=== PATIENT | male | born 1975 | race Caucasian/White ===

== ENCOUNTER 2016-11-10 17:53 | Emergency (ER) | payer OTHER ==
[2016-11-10 17:53] VITALS: BMI 28.2
[2016-11-10] MEDS ORDERED: Aspirin 325 mg EC Tablets PO STA (18:10)
[2016-11-10 18:25] LABS: BASO % 0.3 % (0.0-2.0); EOS # 0.1 K/uL (0.0-0.7); EOS % 1.8 % (0.0-4.0); HEMATOCRIT 41.6 % (35.0-51.0); LYMPH # 2.5 K/uL (1.0-4.3); MEAN CELL VOLUME 77.2 fL (80.0-94.0); MEAN CORPUSCULAR HEMOGLOBIN 25.3 pg (27.0-31.0); MEAN CORPUSCULAR HGB CONC 32.7 g/dL (33.0-37.0); MEAN PLATELET VOLUME 7.8 fL (7.2-11.7); MONO # 0.7 K/uL (0.0-0.8); MONO % 9.2 % (0.0-10.0); NRBC % 0.1 % (0.0-2.0); RED CELL DISTRIBUTION WIDTH 14.9 % (11.5-14.5); WHITE BLOOD COUNT 7.5 K/uL (4.8-10.8)
[2016-11-10 18:34] LABS: CHLORIDE 101 mmol/L (98-107); INR 1.1; PARTIAL THROMBOPLASTIN TIME 31 SECONDS (21-34); SODIUM 140 mmol/L (132-148)
[2016-11-10 18:35] LABS: POTASSIUM 3.8 mmol/L (3.6-5.2)
[2016-11-10 18:37] LABS: ALB/GLOB RATIO 1.1 (1.0-2.1); ALKALINE PHOSPHATASE 65 U/L (38-126); ALT/SGPT 30 U/L (21-72); AST/SGOT 27 U/L (17-59); BILIRUBIN,TOTAL 0.6 mg/dL (0.2-1.3); BLOOD UREA NITROGEN 9 mg/dL (9-20); CARBON DIOXIDE 23 mmol/L (22-30); GFR AFRICAN-AMERICAN > 60; GLUCOSE,RANDOM 98 mg/dL (75-110); TOTAL PROTEIN 7.3 g/dL (6.3-8.3)
[2016-11-10 18:38] LABS: CALCIUM 8.5 mg/dl (8.6-10.4)
--- NOTE | 2016-11-10 19:34 | C.PDOC ---
History Of Present Illness Pt c/o left sided chest pain this morning that lasted a few minutes. Time Seen by Provider: 11/10/16 18:04 Chief Complaint (Nursing): Chest Pain History Per: Patient Onset/Duration Of Symptoms: Hrs (this morning) Current Symptoms Are (Timing): Gone (lasted a few minutes) Severity: Moderate Quality: Sharp Associated Symptoms: denies: Nausea, Dyspnea, Diaphoresis, Syncope Modifying Factors: None Additional History Per: Prior Records Past Medical History Reviewed: Historical Data, Nursing Documentation, Vital Signs Vital Signs: Last Vital Signs Temp 98.6 F 11/10/16 18:00 Pulse 85 11/10/16 18:00 Resp 18 11/10/16 18:00 BP 119/80 11/10/16 18:00 Pulse Ox 97 11/10/16 18:00 - Medical History PMH: Anxiety Surgical History: No Surg Hx - [facility] Procedures CLOSURE SKIN & SUBCUTANEOUS NEC (01/22/05) Family History: States: Diabetes, Hypertension Denies: [place] (at early age) - Social History Hx Tobacco Use: No Hx Alcohol Use: Yes Hx Substance Use: No - Immunization History Hx Tetanus Toxoid Vaccination: No Hx Influenza Vaccination: No Hx Pneumococcal Vaccination: No Review Of Systems Except As Marked, All Systems Reviewed And Found Negative. Constitutional: Negative for: Fever, Weakness Respiratory: Negative for: Shortness of Breath, Hemoptysis Gastrointestinal: Negative for: Nausea, Vomiting, Abdominal Pain Musculoskeletal: Negative for: Neck Pain, Leg Pain Skin: Negative for: Rash Neurological: Negative for: Weakness, Numbness, Seizures, Altered Mental Status Physical Exam - Physical Exam Appears: Non-toxic, No Acute Distress Skin: Normal Color, Warm, Dry, No Rash Head: Atraumatic, Normacephalic Eye(s): bilateral: PERRL, EOMI Neck: Normal ROM, Supple Cardiovascular: Rhythm Regular Respiratory: Normal Breath Sounds, No Accessory Muscle Use Gastrointestinal/Abdominal: Soft, No Tenderness Back: No CVA Tenderness Extremity: Normal ROM, No Pedal Edema, No Calf Tenderness Neurological/Psych: Oriented x3, Normal Motor, Normal Sensation ED Course And Treatment - Laboratory Results Result Diagrams: 11/10/16 18:20 11/10/16 18:20 Lab Interpretation: No Acute Changes ECG: Interpreted By Me, Viewed By Me ECG Rhythm: Sinus Rhythm ECG Interpretation: No Acute Changes Rate From EC O2 Sat by Pulse Oximetry: 97 Pulse Ox Interpretation: Normal - Radiology CXR: Interpreted by Me, Viewed By Me CXR Interpretation: Yes: No Acute Disease, Heart Size (wnl), Mediastinum (wnl) Reassessment Condition: Improved Disposition Counseled Patient/Family Regarding: Studies Performed, Diagnosis, Need For Followup, Rx Given - Disposition Referrals: [facility] [Outside] Disposition: HOME/ ROUTINE Disposition Time: 19:34 Condition: STABLE Additional Instructions: Follow up in the clinic within 1 week for further evaluation and treatment. Return to the ER if you develop worsening of symptoms or if you have any other concerns. Prescriptions: Aspirin [Ecotrin] 81 mg PO DAILY #30 tabec Instructions: Chest Pain (ED) - Clinical Impression Clinical Impression: Chest pain
[2016-11-10 19:55] VITALS: BP 115/79; PULSE 76; RESP 20; TEMP 98.3; O2SAT 96
--- NOTE | 2016-11-11 09:27 | RAD ---
PROCEDURE: CHEST RADIOGRAPH, 1 VIEW HISTORY: Chest pain COMPARISON: 09/04/2015. FINDINGS: LUNGS: The lungs are well inflated and clear. PLEURA: No pneumothorax or pleural fluid seen. CARDIOVASCULAR: Normal. OSSEOUS STRUCTURES: No significant abnormalities. VISUALIZED UPPER ABDOMEN: Normal. OTHER FINDINGS: None. IMPRESSION: No active pulmonary disease.
--- NOTE | 2016-11-13 12:46 | CARD ---
APPROVED REPORT EKG Measurement Heart [id number] <Conclusion> Normal sinus rhythm Normal ECG
== END 2016-11-10 19:57 | disposition home or self-care (01) ==
LOC: C.ER 17:53
DX: R07.9 Chest pain, unspecified (principal)

== ENCOUNTER 2017-03-07 18:27 | Emergency (ER) | payer OTHER ==
[2017-03-07 18:27] VITALS: BMI 28.2
[2017-03-07 18:39] VITALS: TEMP 98
[2017-03-07 19:27] LABS: BASO % 0.4 % (0.0-2.0); EOS # 0.1 K/uL (0.0-0.7); EOS % 1.7 % (0.0-4.0); HEMATOCRIT 41.5 % (35.0-51.0); LYMPH # 2.1 K/uL (1.0-4.3); LYMPH % 29.9 % (20.0-40.0); MEAN CELL VOLUME 78.5 fL (80.0-94.0); MEAN CORPUSCULAR HEMOGLOBIN 25.5 pg (27.0-31.0); MEAN CORPUSCULAR HGB CONC 32.4 g/dL (33.0-37.0); MEAN PLATELET VOLUME 7.7 fL (7.2-11.7); MONO # 0.7 K/uL (0.0-0.8); MONO % 10.8 % (0.0-10.0); RED CELL DISTRIBUTION WIDTH 14.8 % (11.5-14.5); WHITE BLOOD COUNT 6.9 K/uL (4.8-10.8)
[2017-03-07 19:39] LABS: ALKALINE PHOSPHATASE 60 U/L (38-126); ALT/SGPT 33 U/L (21-72); AST/SGOT 24 U/L (17-59); BILIRUBIN,TOTAL 0.5 mg/dL (0.2-1.3); BLOOD UREA NITROGEN 6 mg/dL (9-20); CALCIUM 8.5 mg/dl (8.6-10.4); CARBON DIOXIDE 26 mmol/L (22-30); CHLORIDE 100 mmol/L (98-107); GFR AFRICAN-AMERICAN > 60; GLUCOSE,RANDOM 94 mg/dL (75-110); POTASSIUM 3.6 mmol/L (3.6-5.2); SODIUM 136 mmol/L (132-148); TOTAL PROTEIN 8.3 g/dL (6.3-8.3)
[2017-03-07 19:44] LABS: ALB/GLOB RATIO 0.9 (1.0-2.1)
[2017-03-07 19:49] LABS: RBC URINE 1 /hpf (0-3); URINE BILIRUBIN NEGATIVE (NEGATIVE); URINE BLOOD NEGATIVE (NEGATIVE); URINE COLOR Yellow (YELLOW); URINE GLUCOSE (UA) NORMAL (Normal); URINE HYALINE CAST 0-2 /lpf (0-2); URINE KETONE NEGATIVE (NEGATIVE); URINE LEUKOCYTE ESTERASE NEG Leu/uL (Negative); URINE PROTEIN NEGATIVE (NEGATIVE); URINE UROBILINOGEN NORMAL mg/dL (0.2-1.0)
[2017-03-07 20:01] LABS: INR 1.1; PARTIAL THROMBOPLASTIN TIME 30 SECONDS (21-34)
--- NOTE | 2017-03-07 21:26 | C.PDOC ---
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 Patient reports his pain is worse with deep inspiration and certain movements. He denies fever, chills, shortness of breath, direct trauma/injury to affected area or recent falls. Time Seen by Provider: 03/07/17 18:46 Chief Complaint (Nursing): Rib Injury History Per: Patient History/Exam Limitations: no limitations Onset/Duration Of Symptoms: Days (4) Current Symptoms Are (Timing): Still Present Quality Of Discomfort: "Pain" Exacerbating Factor(s): Movement, Other (deep inspiration ) Additional History Per: Patient Past Medical History Reviewed: Historical Data, Nursing Documentation, Vital Signs Vital Signs: Last Vital Signs Temp 98 F 03/07/17 18:36 Pulse 79 03/07/17 21:32 Resp 20 03/07/17 21:32 BP 117/76 03/07/17 21:32 Pulse Ox 98 03/07/17 22:27 - Medical History PMH: Anxiety Surgical History: No Surg Hx - [facility] Procedures CLOSURE SKIN & SUBCUTANEOUS NEC (01/22/05) Family History: States: Diabetes, Hypertension Denies: [place] (at early age) - Social History Hx Tobacco Use: No Hx Alcohol Use: Yes Hx Substance Use: No - Immunization History Hx Tetanus Toxoid Vaccination: No Hx Influenza Vaccination: No Hx Pneumococcal Vaccination: No Review Of Systems Respiratory: Negative for: Shortness of Breath Musculoskeletal: Positive for: Other (right lower rib/flank pain ) Physical Exam - Physical Exam Appears: Non-toxic, No Acute Distress Skin: Normal Color, Warm, Dry Head: Atraumatic, Normacephalic Eye(s): bilateral: Normal Inspection Oral Mucosa: Moist Neck: Supple Chest: Symmetrical, No Deformity, Tenderness (reproducible, to posterolateral aspect of right lower ribs ) Cardiovascular: Rhythm Regular, No Murmur Respiratory: Normal Breath Sounds, No Rales, No Rhonchi, No Wheezing Gastrointestinal/Abdominal: Soft, No Tenderness, No Guarding, No Rebound Back: No Vertebral Tenderness, No Paraspinal Tenderness Extremity: Normal ROM, Capillary Refill (less than 2 seconds) Neurological/Psych: Oriented x3, Normal Speech, Normal Cognition Gait: Steady ED Course And Treatment - Laboratory Results Result Diagrams: 03/07/17 19:23 11/19/17 19:23 O2 Sat by Pulse Oximetry: 98 (on RA) Pulse Ox Interpretation: Normal Progress Note: CXR, LS Spine AP/LAT, Bloodwork,and UA ordered. CXR and LS Spine AP/LAT XR show no acute changes. Patient is refusing pain medication at this time. Patient requests prescription medication for night time, because he states his symptoms usually worsen at night. Patient is resting comfortably, showing no signs of distress and is ambulatory in the ED without distress. Patient is advised to follow up with his PMD within 1-2 days for further evaluation and/or return to ED if symptoms return or worsen. Disposition - Disposition Disposition: HOME/ ROUTINE Disposition Time: 21:24 Condition: STABLE Additional Instructions: Follow up with PMD within 1-2 days. Return to ED if feel worse. 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 - Scribe Statement The provider has reviewed the documentation as recorded by the Scribe (Olinda Gonzalez) All medical record entries made by the Scribe were at my direction and personally dictated by me. I have reviewed the chart and agree that the record accurately reflects my personal performance of the history, physical exam, medical decision making, and the department course for this patient. I have also personally directed, reviewed, and agree with the discharge instructions and disposition.
[2017-03-07 21:33] VITALS: BP 117/76; PULSE 79; RESP 20
[2017-03-07 22:21] VITALS: O2SAT 98
--- NOTE | 2017-03-08 08:47 | RAD ---
HISTORY: right rib /back pain COMPARISON: No prior. TECHNIQUE: Chest PA and lateral FINDINGS: LUNGS: No active pulmonary disease. PLEURA: No significant pleural effusion identified. No pneumothorax apparent. CARDIOVASCULAR: Normal. OSSEOUS STRUCTURES: No significant abnormalities. VISUALIZED UPPER ABDOMEN: Normal. OTHER FINDINGS: None. IMPRESSION: No active disease.
--- NOTE | 2017-03-08 09:05 | RAD ---
PROCEDURE: Radiographs of the Lumbar Spine. HISTORY: right back pain COMPARISON: No prior. FINDINGS: BONES: Normal alignment. No listhesis. No fracture. DISC SPACES: Unremarkable. OTHER FINDINGS: None. IMPRESSION: Unremarkable radiographs of the lumbar spine.
== END 2017-03-07 21:36 | disposition home or self-care (01) ==
LOC: C.ER 18:27
DX: M54.89 Other dorsalgia (principal)

== ENCOUNTER 2017-03-27 17:27 | Emergency (ER) | payer OTHER ==
[2017-03-27 17:28] VITALS: BMI 28.2
[2017-03-27 18:31] LABS: BASO % 0.3 % (0.0-2.0); EOS # 0.1 K/uL (0.0-0.7); EOS % 1.6 % (0.0-4.0); HEMATOCRIT 40.6 % (35.0-51.0); LYMPH # 2.2 K/uL (1.0-4.3); LYMPH % 28.4 % (20.0-40.0); MEAN CELL VOLUME 77.9 fL (80.0-94.0); MEAN CORPUSCULAR HEMOGLOBIN 25.5 pg (27.0-31.0); MEAN CORPUSCULAR HGB CONC 32.7 g/dL (33.0-37.0); MEAN PLATELET VOLUME 7.5 fL (7.2-11.7); MONO % 12.9 % (0.0-10.0); NRBC % 0.1 % (0.0-2.0); RED CELL DISTRIBUTION WIDTH 14.7 % (11.5-14.5); WHITE BLOOD COUNT 7.8 K/uL (4.8-10.8)
--- NOTE | 2017-03-27 18:31 | C.PDOC ---
History Of Present Illness 41 year old male presents to ED for evaluation of intermittent episodes of headache, and chest pressure for the past 3 days. Patient states that headache radiates from the front to the back of the head and is associated with right jaw pain, and right neck pain radiating down to the chest occasionally. Notes taking Ibuprofen with some relief. Denies experiencing similar symptoms in the past. Denies dizziness, vision change, shortness of breath, cough, or fever. Time Seen by Provider: 03/27/17 17:53 Chief Complaint (Nursing): Headache History Per: Patient History/Exam Limitations: no limitations Onset/Duration Of Symptoms: Days (3) Current Symptoms Are (Timing): Still Present Quality: Pressure Preceeding Symptoms: denies: Visual Disturbances, Known Migraine Symptoms Associated Symptoms: denies: Photophobia, Blurred Vision, Nausea, Vomiting, Extremity Weakness Recent travel outside of the [place]: No Additional History Per: Patient Past Medical History Reviewed: Historical Data, Nursing Documentation, Vital Signs Vital Signs: Last Vital Signs Temp 98.5 F 03/27/17 17:46 Pulse 86 03/27/17 17:46 Resp 18 03/27/17 17:46 BP 126/86 03/27/17 17:46 Pulse Ox 96 03/27/17 18:59 - Medical History PMH: Anxiety - [facility] Procedures CLOSURE SKIN & SUBCUTANEOUS NEC (01/22/05) Family History: States: Diabetes, Hypertension Denies: [place] (at early age) - Social History Hx Tobacco Use: No Hx Alcohol Use: Yes Hx Substance Use: No - Immunization History Hx Tetanus Toxoid Vaccination: No Hx Influenza Vaccination: No Hx Pneumococcal Vaccination: No Review Of Systems Except As Marked, All Systems Reviewed And Found Negative. Constitutional: Negative for: Fever, Chills Eyes: Negative for: Vision Change Cardiovascular: Positive for: Chest Pain. Negative for: Palpitations, Light Headedness Respiratory: Negative for: Cough, Shortness of Breath Gastrointestinal: Negative for: Nausea, Vomiting, Abdominal Pain Neurological: Positive for: Headache. Negative for: Weakness, Numbness, Dizziness Physical Exam - Physical Exam Appears: Non-toxic, Other (uncomfortable) Skin: Normal Color, Warm, Dry Head: Atraumatic, Normacephalic, No Tenderness, No Swelling Eye(s): bilateral: Normal Inspection, PERRL, EOMI, Other (no nystagmus) Nose: Normal, No Flaring Oral Mucosa: Moist Neck: Normal, Normal ROM, Supple Chest: Symmetrical, No Tenderness Cardiovascular: Rhythm Regular, No Murmur Respiratory: Normal Breath Sounds, No Rales, No Rhonchi, No Wheezing Gastrointestinal/Abdominal: Soft, No Tenderness Extremity: Normal ROM, No Pedal Edema, No Deformity, No Swelling Neurological/Psych: Oriented x3, Normal Speech, Normal Cranial Nerves, No Cerebellar Signs, Normal Motor, Normal Sensation Gait: Steady ED Course And Treatment - Laboratory Results Result Diagrams: 03/27/17 18:29 03/27/17 18:29 ECG: Interpreted By Me, Viewed By Me ECG Rhythm: Sinus Rhythm ECG Interpretation: No Acute Changes, No Changes From Prior (11/10/16) Rate From EC O2 Sat by Pulse Oximetry: 96 (RA) Pulse Ox Interpretation: Normal Medical Decision Making Medical Decision Making: impression: Headache and chest pain Plan: * Blood work * Urinalysis * Head CT * EKG * CXR Progress: EKg is normal sinus CXR shows poor inspiratory effort, normal heart and lungs, no effusion or pneumothorax Labs reviewed. CBC WNL. Normal coags. Triglycerides and cholesterol borderline high. Pending cardiac enzymes. 1900 Patient signed out to Dr Peñaloza Disposition - Disposition Disposition Time: 19:00 Condition: STABLE - POA Present On Arrival: None - Clinical Impression Clinical Impression: Chest pain, Headache - PA / CEMENT HANDLER / Resident Statement MD/DO has reviewed & agrees with the documentation as recorded. - Scribe Statement The provider has reviewed the documentation as recorded by the Scribe Tere Gonzalez All medical record entries made by the Scribe were at my direction and personally dictated by me. I have reviewed the chart and agree that the record accurately reflects my personal performance of the history, physical exam, medical decision making, and the department course for this patient. I have also personally directed, reviewed, and agree with the discharge instructions and disposition. Physician Patient Turnover Patient Signed Over To: Roger Peñaloza Handoff Comments: Pending labs, re-evaluation, and disposition
[2017-03-27 18:46] LABS: ALB/GLOB RATIO 0.9 (1.0-2.1); ALKALINE PHOSPHATASE 54 U/L (38-126); ALT/SGPT 38 U/L (21-72); AST/SGOT 22 U/L (17-59); BILIRUBIN,TOTAL 0.3 mg/dL (0.2-1.3); BLOOD UREA NITROGEN 12 mg/dL (9-20); CALCIUM 8.2 mg/dl (8.6-10.4); CARBON DIOXIDE 28 mmol/L (22-30); CHLORIDE 105 mmol/L (98-107); CHOLESTEROL 198 mg/dL (0-199); GFR AFRICAN-AMERICAN > 60; GLUCOSE,RANDOM 86 mg/dL (75-110); POTASSIUM 3.7 mmol/L (3.6-5.2); SODIUM 140 mmol/L (132-148); TOTAL PROTEIN 7.8 g/dL (6.3-8.3)
[2017-03-27 18:47] LABS: INR 1.1
[2017-03-27 19:21] LABS: RBC URINE < 1 /hpf (0-3); URINE BACTERIA RARE (<OCC); URINE BILIRUBIN NEGATIVE (NEGATIVE); URINE BLOOD NEGATIVE (NEGATIVE); URINE COLOR Straw (YELLOW); URINE GLUCOSE (UA) NORMAL (Normal); URINE KETONE NEGATIVE (NEGATIVE); URINE LEUKOCYTE ESTERASE NEG Leu/uL (Negative); URINE PROTEIN NEGATIVE (NEGATIVE); URINE UROBILINOGEN NORMAL mg/dL (0.2-1.0); WBC URINE 1 /hpf (0-5)
--- NOTE | 2017-03-27 19:43 | CT ---
EXAM: CT Head Without Intravenous Contrast CLINICAL HISTORY: 41 years old, male; Pain; Headache; Headache not specified TECHNIQUE: Axial computed tomography images of the head/brain without intravenous contrast. All CT scans at this facility use one or more dose reduction techniques, viz.: automated exposure control; ma/kV adjustment per patient size (including targeted exams where dose is matched to indication; i.e. head); or iterative reconstruction technique. Coronal and sagittal reformatted images were created and reviewed. COMPARISON: No relevant prior studies available. FINDINGS: Brain: No intracranial hemorrhage. No mass. No definite edema. Ventricles: No hydrocephalus. Bones/joints: No acute fracture. Soft tissues: Unremarkable. Sinuses: No acute sinusitis. Mastoid air cells: No mastoid effusion. Orbits: Unremarkable as visualized. IMPRESSION: 1. No acute intracranial abnormality.
[2017-03-27 20:04] VITALS: BP 120/80; PULSE 80; RESP 16; TEMP 98; O2SAT 98
--- NOTE | 2017-03-28 09:21 | RAD ---
HISTORY: chest pain COMPARISON: Comparison is made to 03/07/2017 TECHNIQUE: Chest PA and lateral FINDINGS: LUNGS: Suboptimal poor inspiratory view of the lungs. No evidence of new infiltrate or consolidation in the lungs. PLEURA: No significant pleural effusion identified. No pneumothorax apparent. CARDIOVASCULAR: Normal. OSSEOUS STRUCTURES: No significant abnormalities. VISUALIZED UPPER ABDOMEN: Normal. OTHER FINDINGS: None. IMPRESSION: No active disease.
--- NOTE | 2017-03-29 19:14 | CARD ---
APPROVED REPORT EKG Measurement Heart [id number] [place] [id number] <Conclusion> Normal sinus rhythm Possible Anterior infarct, age undetermined Abnormal ECG
== END 2017-03-27 20:46 | disposition home or self-care (01) ==
LOC: C.ER 17:27
DX: R07.9 Chest pain, unspecified (principal); R51 Headache

== ENCOUNTER 2017-07-26 17:54 | Emergency (ER) | payer OTHER ==
[2017-07-26 17:54] VITALS: BMI 28.2
[2017-07-26 19:52] LABS: BASO % 0.3 % (0.0-2.0); EOS # 0.1 K/uL (0.0-0.7); EOS % 1.4 % (0.0-4.0); HEMOGLOBIN 13.1 g/dL (12.0-18.0); LYMPH # 1.8 K/uL (1.0-4.3); LYMPH % 27.7 % (20.0-40.0); MEAN CELL VOLUME 78.6 fL (80.0-94.0); MEAN CORPUSCULAR HEMOGLOBIN 25.9 pg (27.0-31.0); MEAN PLATELET VOLUME 8.1 fL (7.2-11.7); MONO # 0.7 K/uL (0.0-0.8); MONO % 11.2 % (0.0-10.0); NEUT # 3.8 K/uL (1.8-7.0); NEUT % 59.4 % (50.0-75.0); NRBC % 0.1 % (0.0-2.0); RBC 5.06 Mil/uL (4.40-5.90); RED CELL DISTRIBUTION WIDTH 14.9 % (11.5-14.5); WHITE BLOOD COUNT 6.4 K/uL (4.8-10.8)
[2017-07-26 19:56] LABS: INR 1.1; PROTHROMBIN TIME 12.1 SECONDS (9.7-12.2)
[2017-07-26 20:04] LABS: ALBUMIN 3.7 g/dL (3.5-5.0); CALCIUM 8.5 mg/dl (8.6-10.4); GFR AFRICAN-AMERICAN > 60; GFR NON-AFRICAN AMERICAN > 60
[2017-07-26 20:05] LABS: ALT/SGPT 17 U/L (21-72); AST/SGOT 40 U/L (17-59); BLOOD UREA NITROGEN 10 mg/dL (9-20)
[2017-07-26 20:19] LABS: CK-MB 0.78 ng/mL (0.0-3.38)
[2017-07-26] MEDS ORDERED: Sodium Chloride 0.9% 1,000 ML IV ONE (21:15)
[2017-07-26] MEDS ORDERED: Naproxen 550 mg Tab PO STA (21:15)
[2017-07-26] MEDS ORDERED: Naproxen 550 mg Tab PO ONE (21:29)
[2017-07-26] MEDS ORDERED: Sodium Chloride 0.9% 1,000 ML ONE (21:29)
--- NOTE | 2017-07-26 21:52 | C.PDOC ---
History Of Present Illness 42 year old male presents to the ED for evaluation of left posterior shoulder pain that has been radiating to his left arm and jaw for around 1 week. Patient also notes that he initially experienced left-sided chest pressure when his symptoms began one week ago, but the symptom has since resolved. He notes pain is worse with movement. Symptoms worsened today, which promoted this ED visit. Patient denies fever, chills, rash, shortness of breath, cough, recet injury/ trauma. Patient also denies history of HTN, DM, Hyperlipidemia, smoking or family cardiac history. Time Seen by Provider: 07/26/17 19:02 Chief Complaint (Nursing): Chest Pain History Per: Patient History/Exam Limitations: no limitations Onset/Duration Of Symptoms: Other (1 week) Current Symptoms Are (Timing): Worse Quality: "Pain" Exacerbating Factors: Movement Additional History Per: Patient Past Medical History Reviewed: Historical Data, Nursing Documentation, Vital Signs Vital Signs: Last Vital Signs Temp 98 F 07/26/17 21:00 Pulse 72 07/26/17 22:21 Resp 18 07/26/17 22:21 BP 126/74 07/26/17 22:21 Pulse Ox 97 07/26/17 22:21 - Medical History PMH: Anxiety Surgical History: No Surg Hx - [facility] Procedures CLOSURE SKIN & SUBCUTANEOUS NEC (01/22/05) Family History: States: Diabetes, Hypertension Denies: [place] (at early age) - Social History Hx Tobacco Use: No Hx Alcohol Use: Yes Hx Substance Use: No - Immunization History Hx Tetanus Toxoid Vaccination: No Hx Influenza Vaccination: No Hx Pneumococcal Vaccination: No Review Of Systems Constitutional: Negative for: Fever, Chills Respiratory: Negative for: Cough, Shortness of Breath Musculoskeletal: Positive for: Shoulder Pain (left), Arm Pain (left ), Other ( jaw pain ) Skin: Negative for: Rash Physical Exam - Physical Exam Appears: Non-toxic, No Acute Distress Skin: Normal Color, Warm, Dry, No Rash Head: Atraumatic, Normacephalic Eye(s): bilateral: Normal Inspection Oral Mucosa: Moist Neck: Supple Chest: Symmetrical, No Deformity, No Tenderness Cardiovascular: Rhythm Regular, No Murmur Respiratory: Normal Breath Sounds, No Rales, No Rhonchi, No Wheezing Extremity: No Tenderness (left upper extremity ), Capillary Refill (less than 2 seconds ), Other (pain worsens with movement of left shoulder ) Neurological/Psych: Oriented x3, Normal Speech, Normal Cognition, Normal Sensation ED Course And Treatment - Laboratory Results Result Diagrams: 07/26/17 19:42 07/26/17 19:42 ECG Rhythm: Sinus Rhythm Interpretation Of ECG: Normal Sinus Rhythm at rate 84bpm. Normal axis. No acute ST/T wave changes. Rate From EC O2 Sat by Pulse Oximetry: 98 (on RA) Pulse Ox Interpretation: Normal Progress Note: Bloodwork, CXR, EKG ordered and reviewed. Patient given Naproxen PO, Valium PO and IV Fluids. Disposition Counseled Patient/Family Regarding: Diagnosis, Need For Followup, Rx Given - Disposition Referrals: [facility] [Outside] Yuki Benson MD [Staff Provider] - Disposition: HOME/ ROUTINE Disposition Time: 11:10 Condition: STABLE Additional Instructions: FOLLOW UP WITH DOCTOR/CLINIC IN 1-2 DAYS USE MEDICATIONS NEEDED RETURN TO ER IF SYMPTOMS WORSEN Prescriptions: Diazepam [Valium] 2 mg PO BID PRN #15 tablet PRN Reason: musle spasm Naproxen 375 mg PO BID PRN #20 tablet PRN Reason: pain Instructions: Radiculopathy (DC) Forms: [employer] (Sammarinese) Print Language: DIVEHI - Clinical Impression Clinical Impression: Left shoulder pain, Radiculopathy of arm, Elevated CK - Scribe Statement The provider has reviewed the documentation as recorded by the Scribe (Olinda Gonzalez) Provider Attestation: All medical record entries made by the Scribe were at my direction and personally dictated by me. I have reviewed the chart and agree that the record accurately reflects my personal performance of the history, physical exam, medical decision making, and the department course for this patient. I have also personally directed, reviewed, and agree with the discharge instructions and disposition.
[2017-07-26 23:25] VITALS: BP 112/78; PULSE 73; RESP 20; TEMP 98.1; O2SAT 96
--- NOTE | 2017-07-27 11:24 | RAD ---
PROCEDURE: CHEST RADIOGRAPH, 1 VIEW HISTORY: LEFT SHOULDER/CHEST PAIN COMPARISON: 03/27/2017 FINDINGS: LUNGS: Clear. PLEURA: No pneumothorax or pleural fluid seen. CARDIOVASCULAR: No radiographic findings to suggest acute or significant cardiovascular disease. OSSEOUS STRUCTURES: No significant abnormalities. VISUALIZED UPPER ABDOMEN: Normal. OTHER FINDINGS: None. IMPRESSION: No active disease. No acute/significant interval changes. Concordant results with the preliminary interpretation rendered by the emergency department physician procedure.
--- NOTE | 2017-07-27 17:08 | CARD ---
APPROVED REPORT EKG Measurement Heart [id number] <Conclusion> Normal sinus rhythm Normal ECG
== END 2017-07-26 23:28 | disposition home or self-care (01) ==
LOC: C.ER 17:54
DX: M25.512 Pain in left shoulder (principal); M54.10 Radiculopathy, site unspecified; R79.89 Other specified abnormal findings of blood chemistry
CPT/HCPCS: 71045; 80053; 82550; 82553; 84484; 85025; 85610; 85730; 93005; 96360; 99285; J7040

== ENCOUNTER 2017-11-27 19:07 | Emergency (ER) | payer SELFPAY ==
[2017-11-27 19:08] VITALS: BMI 28.2
--- NOTE | 2017-11-27 19:38 | C.PDOC ---
History Of Present Illness 42 year old male presents to the ED c/o headache, feeling dizziness, chest discomfort that started today at noon. Patient states he developed a headache in the occipital region which is similar to one he got last week. Patient states headache last week lasted couple of days and resolved after he was taking Motrin and Tylenol. Patient is speaking in complete sentences. Patient denies fever, chills, nausea, vomit, diarrhea, injury, fall, trauma, weakness, numbness, visual changes. Time Seen by Provider: 11/27/17 19:37 Chief Complaint (Nursing): Headache History Per: Patient History/Exam Limitations: no limitations Onset/Duration Of Symptoms: Hrs (noon) Current Symptoms Are (Timing): Still Present Quality: "Pain" Preceeding Symptoms: denies: Visual Disturbances, Known Migraine Symptoms Associated Symptoms: denies: Nausea, Vomiting Recent travel outside of the [place]: No Additional History Per: Patient Past Medical History Reviewed: Historical Data, Nursing Documentation, Vital Signs Vital Signs: Last Vital Signs Temp 98.9 F 11/27/17 19:13 Pulse 78 11/27/17 21:55 Resp 18 11/27/17 21:55 BP 117/75 11/27/17 21:55 Pulse Ox 97 11/27/17 21:55 - Medical History PMH: Anxiety Surgical History: No Surg Hx - [facility] Procedures CLOSURE SKIN & SUBCUTANEOUS NEC (01/22/05) Family History: States: Diabetes, Hypertension Denies: [place] (at early age) - Social History Hx Tobacco Use: No Hx Alcohol Use: Yes Hx Substance Use: No - Immunization History Hx Tetanus Toxoid Vaccination: No Hx Influenza Vaccination: No Hx Pneumococcal Vaccination: No Review Of Systems Constitutional: Negative for: Fever, Chills Eyes: Negative for: Vision Change Cardiovascular: Positive for: Chest Pain. Negative for: Palpitations Respiratory: Negative for: Cough, Shortness of Breath Gastrointestinal: Negative for: Nausea, Vomiting Neurological: Positive for: Headache, Dizziness. Negative for: Weakness, Numbness Physical Exam - Physical Exam Appears: Non-toxic, No Acute Distress Skin: Warm, Dry Head: Normacephalic Eye(s): bilateral: Normal Inspection Oral Mucosa: Moist Neck: Supple Chest: Symmetrical Cardiovascular: Rhythm Regular Respiratory: No Rales, No Rhonchi, No Wheezing Gastrointestinal/Abdominal: Soft, No Tenderness, No Guarding, No Rebound Back: Normal Inspection Extremity: No Tenderness, No Swelling Extremity: Bilateral: Atraumatic, Normal Color And Temperature, Normal ROM Neurological/Psych: Oriented x3, Normal Speech, Other (no focal deficits) Gait: Steady ED Course And Treatment - Laboratory Results Result Diagrams: 11/27/17 20:31 11/27/17 20:31 ECG: Interpreted By Me, Viewed By Me ECG Rhythm: Sinus Rhythm (72), Nonspecific Changes O2 Sat by Pulse Oximetry: 95 (ON RA) Pulse Ox Interpretation: Normal - Radiology CXR: Interpreted by Me, Viewed By Me CXR Interpretation: Yes: Other (unchanged from 07/26/17). No: Infiltrates, Fracture, Pnemothorax Progress Note: Plan: - EKG. - Labs. - CXR. - UA Reevaluation Time: 00:23 Reassessment Condition: Improved Medical Decision Making Medical Decision Making: Upon provider reevaluation patient is feeling better, is medically stable, and requires no further treatment in the ED at this time. Patient will be discharged home with Rx for zofran, antivert. Counseling was provided and all questions were answered regarding diagnosis and need for follow up with the referred clinic. There is agreement to discharge plan. Return if symptoms persist or worsen. Disposition Counseled Patient/Family Regarding: Studies Performed, Diagnosis, Need For Followup, Rx Given - Disposition Referrals: [facility] [Outside] [facility] [Outside] Disposition: HOME/ ROUTINE Disposition Time: 19:37 Condition: FAIR Additional Instructions: Please return if symptoms recur Prescriptions: Meclizine [Antivert] 25 mg PO TID #15 tab Ondansetron ODT [Zofran ODT] 1 odt PO BID PRN #6 odt PRN Reason: Nausea/Vomiting Instructions: Migraine Headache (DC), Dizziness, Nonvertigo, (DC) Forms: [employer] (Bruneian) - Clinical Impression Clinical Impression: Migraine, Dizziness - Scribe Statement The provider has reviewed the documentation as recorded by the Scribkavon Valencia All medical record entries made by the Scribe were at my direction and personally dictated by me. I have reviewed the chart and agree that the record accurately reflects my personal performance of the history, physical exam, medical decision making, and the department course for this patient. I have also personally directed, reviewed, and agree with the discharge instructions and disposition.
[2017-11-27 20:34] LABS: BASO % 0.4 % (0.0-2.0); EOS # 0.1 K/uL (0.0-0.7); EOS % 1.5 % (0.0-4.0); HEMOGLOBIN 14.3 g/dL (12.0-18.0); LYMPH % 26.9 % (20.0-40.0); MEAN CELL VOLUME 78.3 fL (80.0-94.0); MEAN CORPUSCULAR HEMOGLOBIN 26.3 pg (27.0-31.0); MEAN CORPUSCULAR HGB CONC 33.6 g/dL (33.0-37.0); MONO # 0.8 K/uL (0.0-0.8); MONO % 10.9 % (0.0-10.0); NEUT # 4.5 K/uL (1.8-7.0); NEUT % 60.3 % (50.0-75.0); RBC 5.44 Mil/uL (4.40-5.90); RED CELL DISTRIBUTION WIDTH 14.9 % (11.5-14.5); WHITE BLOOD COUNT 7.4 K/uL (4.8-10.8)
[2017-11-27 20:42] LABS: INR 1.2; PROTHROMBIN TIME 12.8 SECONDS (9.7-12.2)
[2017-11-27 20:45] LABS: ALB/GLOB RATIO 1.2 (1.0-2.1); ALT/SGPT 34 U/L (21-72); AST/SGOT 30 U/L (17-59); BLOOD UREA NITROGEN 12 mg/dL (9-20); CALCIUM 8.8 mg/dl (8.6-10.4); GFR AFRICAN-AMERICAN > 60; GFR NON-AFRICAN AMERICAN > 60; LIPASE 108 U/L (23-300)
--- NOTE | 2017-11-27 22:14 | RAD ---
Date of service: 11/27/2017 PROCEDURE: CHEST RADIOGRAPH, 1 VIEW HISTORY: SOB COMPARISON: Comparison is made with 07/26/2017 FINDINGS: LUNGS: No evidence of new infiltrate or consolidation in the lungs. PLEURA: No pneumothorax or pleural fluid seen. CARDIOVASCULAR: Normal. OSSEOUS STRUCTURES: No significant abnormalities. VISUALIZED UPPER ABDOMEN: Normal. OTHER FINDINGS: None. IMPRESSION: No active disease.
[2017-11-27] MEDS ORDERED: Sodium Chloride 0.9% 500 ML IV ONE (23:13)
[2017-11-28 00:27] VITALS: BP 129/87; PULSE 98; RESP 20; TEMP 98; O2SAT 97
--- NOTE | 2017-11-28 08:38 | CT ---
Date of service: 11/27/2017 PROCEDURE: CT HEAD WITHOUT CONTRAST. HISTORY: headache COMPARISON: Comparison is made with 03/27/2017 TECHNIQUE: Axial computed tomography images were obtained through the head/brain without intravenous contrast. Radiation dose: Total exam DLP = 898.33 mGy-cm. This CT exam was performed using one or more of the following dose reduction techniques: Automated exposure control, adjustment of the mA and/or kV according to patient size, and/or use of iterative reconstruction technique. FINDINGS: HEMORRHAGE: No intracranial hemorrhage. BRAIN: No mass effect or edema. No atrophy or chronic microvascular ischemic changes. VENTRICLES: Unremarkable. No hydrocephalus. CALVARIUM: Unremarkable. PARANASAL SINUSES: Unremarkable as visualized. No significant inflammatory changes. MASTOID AIR CELLS: Unremarkable as visualized. No inflammatory changes. OTHER FINDINGS: None. IMPRESSION: No evidence of acute intracranial hemorrhage intracranial collection mass effect or midline shift. Preliminary report was submitted by virtual Radiology.
== END 2017-11-28 00:26 | disposition home or self-care (01) ==
LOC: C.ER 19:07
DX: R42 Dizziness and giddiness (principal); G43.909 Migraine, unspecified, not intractable, without status migrainosus
CPT/HCPCS: 70450; 71045; 80053; 83690; 84484; 85025; 85610; 85730; 93005; 96374; 96376; 99285; J2405; J7040

== ENCOUNTER 2018-01-22 01:07 | Emergency (ER) | payer SELFPAY ==
[2018-01-22 01:07] VITALS: BMI 28.2
[2018-01-22 01:22] VITALS: BP 132/84; PULSE 93; RESP 18; TEMP 98.4; O2SAT 97
[2018-01-22] MEDS ORDERED: Tdap Vaccine 0.5 ml Vial (10-64 yrs) IM ONE (01:49)
[2018-01-22] MEDS ORDERED: Tetanus/Diphtheria Toxoids 0.5 ml Syringe IM ONE (01:50)
--- NOTE | 2018-01-22 01:59 | C.PDOC ---
History Of Present Illness 42 year old male presents to the ED for evaluation of a laceration above his right eyebrow. 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 Patient denies LOC, visual changes, headache, nausea, vomit, dizziness, other injury, trauma. Time Seen by Provider: 01/22/18 01:17 Chief Complaint (Nursing): Abnormal Skin Integrity History Per: Patient History/Exam Limitations: no limitations Onset/Duration Of Symptoms: Hrs Current Symptoms Are (Timing): Still Present Location Of Injury: Right: Head Quality Of Symptoms: Painful Recent travel outside of the [place]: No Additional History Per: Patient Past Medical History Reviewed: Historical Data, Nursing Documentation, Vital Signs Vital Signs: Last Vital Signs Temp 98.4 F 01/22/18 01:18 Pulse 93 H 01/22/18 01:18 Resp 18 01/22/18 01:18 BP 132/84 01/22/18 01:18 Pulse Ox 97 01/22/18 01:18 - Medical History PMH: Anxiety Surgical History: No Surg Hx - [facility] Procedures CLOSURE SKIN & SUBCUTANEOUS NEC (01/22/05) Family History: States: Diabetes, Hypertension Denies: [place] (at early age) - Social History Hx Tobacco Use: No Hx Alcohol Use: Yes Hx Substance Use: No - Immunization History Hx Tetanus Toxoid Vaccination: No Hx Influenza Vaccination: No Hx Pneumococcal Vaccination: No Review Of Systems Constitutional: Negative for: Fever, Chills Eyes: Negative for: Vision Change Gastrointestinal: Negative for: Nausea, Vomiting Skin: Positive for: Other (laceration) Neurological: Positive for: Headache. Negative for: Weakness, Numbness, Dizziness Physical Exam - Physical Exam Appears: Non-toxic, No Acute Distress Skin: Normal Color, Warm, Dry Head: Atraumatic, Normacephalic, Laceration (1.5 cm above right eyebrow) Eye(s): bilateral: Normal Inspection, PERRL, EOMI, right: Other (no subconjunctival hemorrhage) Neck: Normal ROM, Supple Extremity: Normal ROM, No Tenderness, No Swelling Neurological/Psych: Oriented x3, Normal Speech, Normal Cognition Gait: Steady ED Course And Treatment O2 Sat by Pulse Oximetry: 97 (ON RA) Pulse Ox Interpretation: Normal Progress Note: Plan: - tetanus immunization. On reassessment, patient is resting comfortably, and is in no acute distress. Patient was instructed to follow up with physician/clinic in 1-2 days for further evaluation. Laceration - Laceration Repair right eyebrow Wound Length (In cm): 1.5 Description Of Wound: Linear Wound Cleansed With: Betadine Wound Examination: Irrigated With Saline Wound Closure: Steri Strips (x2), Suture Wound Complexity: Simple Disposition Counseled Patient/Family Regarding: Diagnosis, Need For Followup - Disposition Referrals: [facility] [Outside] Disposition: HOME/ ROUTINE Disposition Time: 01:56 Condition: STABLE Additional Instructions: Please follow up with PMD Keep wound clean and dry for 2 days Return to ER if worse Instructions: Laceration Repair With Glue (DC) Forms: [employer] ([place]ican) - Clinical Impression Clinical Impression: Laceration of eyebrow, right - PA / JAR FILLER / Resident Statement MD/DO has reviewed & agrees with the documentation as recorded. - Scribe Statement The provider has reviewed the documentation as recorded by the Scribe Lucio Valencia All medical record entries made by the Scribe were at my direction and personally dictated by me. I have reviewed the chart and agree that the record accurately reflects my personal performance of the history, physical exam, medical decision making, and the department course for this patient. I have also personally directed, reviewed, and agree with the discharge instructions and disposition.
== END 2018-01-22 02:15 | disposition home or self-care (01) ==
LOC: SUPCPDRO 01:07 → C.ER 01:07
DX: S01.111A Laceration without foreign body of right eyelid and periocular area, initial encounter (principal); W22.8XXA Striking against or struck by other objects, initial encounter

== ENCOUNTER 2018-02-26 02:20 | Emergency (ER) | payer SELFPAY ==
[2018-02-26 02:21] VITALS: BMI 28.2
[2018-02-26 02:32] VITALS: RESP 20; TEMP 98
[2018-02-26] MEDS ORDERED: Silver Sulfadiazine 1% Cream (20 gm) TOP STA (02:45)
--- NOTE | 2018-02-26 02:48 | C.PDOC ---
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 Td is UTD. Chief Complaint (Nursing): Burn History Per: Patient Injury Occurred (Timing): Hours Ago: Past Medical History Reviewed: Historical Data, Nursing Documentation, Vital Signs Vital Signs: Last Vital Signs Temp 98 F 02/26/18 02:28 Pulse 80 02/26/18 02:28 Resp 20 02/26/18 02:28 BP 112/76 02/26/18 02:28 Pulse Ox - Medical History PMH: Anxiety - [facility] Procedures CLOSURE SKIN & SUBCUTANEOUS NEC (01/22/05) Family History: States: Diabetes, Hypertension Denies: [place] (at early age) - Social History Hx Tobacco Use: No Hx Alcohol Use: Yes Hx Substance Use: No - Immunization History Hx Tetanus Toxoid Vaccination: Yes Hx Influenza Vaccination: No Hx Pneumococcal Vaccination: No Review Of Systems Except As Marked, All Systems Reviewed And Found Negative. Physical Exam - Physical Exam Appears: Well, Non-toxic, No Acute Distress Skin: Other (right forearm with 4 blisters, 3 of them are open and one is intact. The largest is 2 cm in the greatest dimention. No signs of infection.) Head: Atraumatic, Normacephalic Extremity: Normal ROM, No Tenderness, No Swelling Neurological/Psych: Oriented x3, Normal Speech, Normal Cognition ED Course And Treatment Progress Note: Silvadene cream and dressing applied. patient is stable to be d/c home with PMD follow up. Disposition - Disposition Disposition: HOME/ ROUTINE Disposition Time: 02:46 Condition: STABLE Additional Instructions: Follow up with PMD within 1-2 days. Return to ED if feel worse. Prescriptions: Silver Sulfadiazine 1% [Silver Sulfadiazine] 1 appl TP BID #50 g Instructions: Skin Wolf (DC) Forms: [employer]obe (Macedonian) - Clinical Impression Clinical Impression: Burn of forearm, right, second degree
[2018-02-26] MEDS ORDERED: Silver Sulfadiazine 1% Cream (20 gm) ONE (02:56)
[2018-02-26 03:31] VITALS: BP 114/72; PULSE 82; O2SAT 98
== END 2018-02-26 03:29 | disposition home or self-care (01) ==
LOC: C.ER 02:20
DX: T22.211A Burn of second degree of right forearm, initial encounter (principal); X58.XXXA Exposure to other specified factors, initial encounter